=== PATIENT | male | born 1960 | race Caucasian/White ===

== ENCOUNTER 2018-09-30 20:34 | Emergency (ER) | payer BC ==
[2018-09-30 20:38] VITALS: BP 132/74; PULSE 89; TEMP 98.2; BMI 29.2
--- NOTE | 2018-09-30 21:31 | PDOC ---
History of Present Illness - General History Source: Patient Exam Limitations: No Limitations <CleopatraJose L - Last Filed: 09/30/18 23:20> <Latesha Yung - Last Filed: 10/01/18 05:24> - General Chief Complaint: Chest Pain Stated Complaint: CHEST PAIN Time Seen by Provider: 09/30/18 20:39 - History of Present Illness Initial Comments: 09/30/18 23:21 Patient is a 58 year old male with a significant past medical history of Anxiety , HTN, who presents to the ED with complaints of chest pain that began this morning. Patient reports waking up this morning with chest pain as well as left arm numbness. He reports chest pain is a pressured tightness pain that he states increases with exertion and does not radiate. Patient reports experiencing associated symptoms of head pain, neck pain, lightheadedness, dizziness and fatigue that he states began x5 days ago. Denies chest pain, Sob. Denies nausea, vomiting. Denies fevers, chills. Denies contact with sick individuals, out of state travelling. Denies any other symptoms. Allergies: Penicillins. Social history: Lives with . Former smoker (last 8 months ago). No alcohol. No illicit drugs. Surgical history: None PMD: Dr. Tatiana Nails ([facility]helan[facility]) Past History <CleopatraJose L - Last Filed: 09/30/18 23:20> - Past Medical History Cardiac Disorders: Yes (SVT) COPD: No Disorders: Yes (UTI'S) Kidney Stones: Yes - Surgical History Abdominal Surgery: No Appendectomy: No Cardiac Surgery: No Cholecystectomy: No Lung Surgery: No Neurologic Surgery: No Orthopedic Surgery: No - Immunization History Immunization Up to Date: Yes - Suicide/Smoking/Psychosocial Hx Smoking Status: Yes Smoking History: Former smoker Years of Tobacco Use: 2 Have you smoked in the past 12 months: No Number of Cigarettes Smoked Daily: 2 Information on smoking cessation initiated: Yes Hx Alcohol Use: (occasional) Drug/Substance Use Hx: No Substance Use Type: None Hx Substance Use Treatment: No <Latesha Yung - Last Filed: 10/01/18 05:24> - Past Medical History Allergies/Adverse Reactions: Allergies Allergy/AdvReac Type Severity Reaction Status Date / Time Penicillins Allergy Intermediate Verified 09/30/18 20:35 Home Medications: Ambulatory Orders NK [No Known Home Medication] 09/30/18 Review of Systems - Review of Systems Able to Perform ROS?: Yes <Jose L Whelan - Last Filed: 09/30/18 23:20> <Latesha Yung - Last Filed: 10/01/18 05:24> - Review of Systems Comments:: 09/30/18 23:21 GENERAL/CONSTITUTIONAL: No fever or chills. No weakness. HEAD, EYES, EARS, NOSE AND THROAT: No change in vision. No ear pain or discharge. No sore throat. CARDIOVASCULAR: +Chest pain No shortness of breath. RESPIRATORY: No cough, wheezing, or hemoptysis. GASTROINTESTINAL: No nausea, vomiting, diarrhea or constipation. GENITOURINARY: No dysuria, frequency, or change in urination. MUSCULOSKELETAL: +Left arm numbness. No joint or muscle swelling or pain. No neck or back pain. SKIN: No rash NEUROLOGIC: No headache, vertigo, loss of consciousness, or change in strength/ sensation. ENDOCRINE: No increased thirst. No abnormal weight change. HEMATOLOGIC/LYMPHATIC: No anemia, easy bleeding, or history of blood clots. ALLERGIC/IMMUNOLOGIC: No hives or skin allergy. (Jose L Whelan) *Physical Exam <Jose L Whelan - Last Filed: 09/30/18 23:20> <Latesha Yung - Last Filed: 10/01/18 05:24> - Vital Signs Last Vital Signs Temp Pulse Resp BP Pulse Ox 98.2 F 89 18 132/74 100 09/30/18 20:34 09/30/18 20:34 09/30/18 20:34 09/30/18 20:34 09/30/18 20:34 - Physical Exam Comments: 09/30/18 23:21 GENERAL: Awake, alert, and fully oriented, in no acute distress HEAD: No signs of trauma EYES: PERRLA, EOMI, sclera anicteric, conjunctiva clear ENT: Auricles normal inspection, hearing grossly normal, nares patent, oropharynx clear without exudates. Moist mucosa NECK: Normal ROM, supple, no lymphadenopathy, JVD, or masses LUNGS: Breath sounds equal, clear to auscultation bilaterally. No wheezes, and no crackles HEART: Regular rate and rhythm, normal S1 and S2, no murmurs, rubs or gallops ABDOMEN: Soft, nontender, normoactive bowel sounds. No guarding, no rebound. No masses EXTREMITIES: Normal range of motion, no edema. No clubbing or cyanosis. No cords, erythema, or tenderness NEUROLOGICAL: Cranial nerves II through XII grossly intact. Normal speech, normal gait SKIN: Warm, Dry, normal turgor, no rashes or lesions noted. (Jose L Whelan) - Procedure Monitoring Vital Signs: Procedure Monitoring Vital Signs Temperature 98.2 F 09/30/18 20:34 Pulse Rate 89 09/30/18 20:34 Respiratory Rate 18 09/30/18 20:34 Blood Pressure 132/74 09/30/18 20:34 O2 Sat by Pulse Oximetry (%) 100 09/30/18 20:34 ED Treatment Course - LABORATORY CBC & Chemistry Diagram: 09/30/18 21:30 09/30/18 21:00 <Jose L Whelan - Last Filed: 09/30/18 23:20> - LABORATORY CBC & Chemistry Diagram: 09/30/18 21:30 09/30/18 21:00 <Latesha Yung - Last Filed: 10/01/18 05:24> - ADDITIONAL ORDERS Additional order review: Laboratory Results 10/01/18 09/30/18 09/30/18 01:00 21:30 21:00 PT with INR 12.8 INR 1.15 Sodium Potassium Chloride Carbon Dioxide Anion Gap BUN Creatinine Creat Clearance w eGFR Random Glucose Calcium Total Bilirubin AST ALT Alkaline Phosphatase Creatine Kinase Troponin I < 0.02 < 0.03 Total Protein Albumin 09/30/18 21:00 PT with INR INR Sodium 140 Potassium 4.0 Chloride 106 Carbon Dioxide 27 Anion Gap 7 L BUN 24 H Creatinine 1.1 Creat Clearance w eGFR > 60 Random Glucose 103 Calcium 8.7 Total Bilirubin 0.9 AST 19 D ALT 16 D Alkaline Phosphatase 51 Creatine Kinase 73 Troponin I Total Protein 6.7 Albumin 4.0 09/30/18 21:30 RBC 5.02 MCV 83.9 MCHC 33.1 RDW 13.6 MPV 8.8 Neutrophils % 51.7 Lymphocytes % 36.3 Monocytes % 9.4 Eosinophils % 1.6 Basophils % 1.0 - RADIOLOGY Radiology Studies Ordered: Category Date Time Status CHEST X-RAY PORTABLE* [RAD] Stat Radiology 09/30/18 23:06 Taken - Medications Given in the ED: ED Medications Discontinued Medications Generic Name Dose Route Start Last Admin Trade Name Zee PRN Reason Stop Dose Admin Ketorolac Tromethamine 30 mg 09/30/18 23:05 09/30/18 23:23 Toradol Injection - IVPUSH 09/30/18 23:06 30 mg ONCE ONE Administration Medical Decision Making <Jose L Whelan - Last Filed: 09/30/18 23:20> <Latesha Yung - Last Filed: 10/01/18 05:24> - Medical Decision Making Documentation has been prepared under my direction and personally reviewed by me in its entirety. I attest that this documented accurately reflects all work, treatment, procedures and medical decision making performed by me. As noted above, this 58-year-old man presents with 1 day history of left-sided chest pain/a few hour history of left forearm/left hand numbness (palmar aspect ) that resolved spontaneously. Patient states that he has some increase in pain with exertion; no clear pleuritic component to the pain. Physical exam is notable for tenderness of the left anterior chest wall to palpation; otherwise, physical exam is normal. His risk factors for coronary artery disease is past history of smoking only Laboratory evaluation is essentially normal, including troponin which is not elevated Second troponin level is drawn 4 hours after first: No elevation seen Clinical presentation is most consistent with chest wall etiology pain such as costochondritis/chest wall strain. Patient was given 30 mg Toradol IV. (Latesha Yung) *DC/Admit/Observation/Transfer <Jose L Whelan - Last Filed: 09/30/18 23:20> <Latesha Yung - Last Filed: 10/01/18 05:24> Diagnosis at time of Disposition: Atypical chest pain - Discharge Dispostion Disposition: HOME Condition at time of disposition: Stable - Referrals Referrals: Tatiana Nails MD [Primary Care Provider] - Call tomorrow - Patient Instructions Printed Discharge Instructions: DI for Atypical Chest Pain Additional Instructions: Rest; avoid strenuous activity involving upper body for the next 5 days Ibuprofen/naproxen/acetaminophen as needed for pain Call Dr. Nails tomorrow to arrange follow-up within the next 48 hours Return to ER immediately if you have worsening pain/shortness of breath - Post Discharge Activity - Attestations Scribe Attestion: 09/30/18 23:21 Documentation prepared by Jose L Whelan, acting as biomedical analytical scientist for Latesha Yung MD. (Cleopatra,Jose L)
[2018-09-30 21:51] LABS: HEMOGLOBIN 13.9 GM/dl (11.7-16.9)
[2018-09-30 21:55] LABS: EOS % 1.6 % (0-4.5); HEMATOCRIT 42.1 % (35.4-49); INR 1.15 (0.82-1.09); LYMPH % 36.3 % (8-40); MCH 27.8 pg (25.7-33.7); MCHC 33.1 g/dl (32.0-35.9); MEAN CELL VOLUME 83.9 fl (80-96); MEAN PLT VOLUME 8.8 fl (7.5-11.1); MONO % 9.4 % (3.8-10.2); NEUT % 51.7 % (42.8-82.8); PLATELET COUNT 212 K/MM3 (134-434); PROTHROMBIN TIME (PATIENT) 12.8 SEC (10.2-13.0); RBC 5.02 M/mm3 (4.00-5.60); RDW 13.6 % (11.9-15.9); WHITE BLOOD COUNT 4.6 K/mm3 (4.0-10.8)
[2018-09-30 22:02] LABS: ALK PHOS 51 U/L (32-92); ANION GAP 7 MMOL/L (8-16); BILIRUBIN,TOTAL 0.9 mg/dl (0.2-1.0); BLOOD UREA NITROGEN 24 mg/dl (7-18); CALCIUM 8.7 mg/dl (8.4-10.2); CHLORIDE 106 mmol/L (98-107); CO2 27 mmol/L (22-28); CREATININE 1.1 mg/dl (0.6-1.3); GLUCOSE,RANDOM 103 mg/dl (74-106); SGOT/AST 19 U/L (10-42); SGPT/ALT 16 U/L (10-40); SODIUM 140 mmol/L (136-145); TOT PROT 6.7 g/dl (6.4-8.3)
[2018-09-30] MEDS ORDERED: KETOROLAC TROMETHAMINE 30 MG/1 ML VIAL IVPUSH ONE (23:05)
[2018-09-30] MEDS ORDERED: KETOROLAC TROMETHAMINE 30 MG/1 ML VIAL ONE (23:22)
--- NOTE | 2018-10-06 18:18 | EKG ---
Test Reason : Blood Pressure : / mmHG Vent. Rate : 074 BPM Atrial Rate : 074 BPM P-R Int : 144 ms QRS Dur : 092 ms QT Int : 396 ms P-R-T Axes : 071 074 059 degrees QTc Int : 439 ms NORMAL SINUS RHYTHM NORMAL ECG NO PREVIOUS ECGS AVAILABLE Confirmed by MD LEONCIO, CIELO ([id number]) on 10/06/2018 6:18:27 PM Referred By: MD CORTES Confirmed By:CIELO FANG MD
== END 2018-10-01 02:23 | disposition home or self-care (01) ==
LOC: FER 20:34
PROC: 3E0333Z Introduction of Anti-inflammatory into Peripheral Vein, Percutaneous Approach (ICD-10-PCS; principal; 2018-09-30)
DX: R07.89 Other chest pain (principal); I10 Essential (primary) hypertension; F41.9 Anxiety disorder, unspecified; Z88.0 Allergy status to penicillin; Z87.891 Personal history of nicotine dependence
CPT/HCPCS: 36415; 71045-TC-FY; 80053; 82550; 84484; 85025; 85610; 93005; 99284-25

== ENCOUNTER 2020-06-12 07:31 | Day surgery (SDC) | payer BC ==
--- OUTSIDE RECORDS SUMMARY | 2020-06-07 07:29 | XMS ---
:1960 Author Organization [facility] Support Name Relationship Address Phone GUILLORY DESIGN Unavailable [address] [place] [address] FAISAL VILLARREAL [address] [facility] [phone] [place] [address] FAISAL LOZA [address] [facility] [phone] [place] [address] Re-disclosure Warning The records that you are about to access may contain information from federally- assisted alcohol or drug abuse programs. If such information is present, then the following federally mandated warning applies: This information has been disclosed to you from records protected by federal confidentiality rules (42 CFR part 2). The federal rules prohibit you from making any further disclosure of this information unless further disclosure is expressly permitted by the written consent of the person to whom it pertains or as otherwise permitted by 42 CFR part 2. A general authorization for the release of medical or other information is NOT sufficient for this purpose. The Federal rules restrict any use of the information to criminally investigate or prosecute any alcohol or drug abuse patient.The records that you are about to access may contain highly sensitive health information, the redisclosure of which is protected by Article 27-F of the [facility] Public Health law. If you continue you may haveaccess to information: Regarding HIV / AIDS; Provided by facilities licensed or operated by the [facility] Office of Mental Health; or Provided by the [facility] Office for People With Developmental Disabilities. If such information is present, then the following [facility] mandated warning applies: This information has been disclosed to you from confidential records which are protected by state law. State law prohibits you from making any further disclosure of this information without the specific written consent of the person to whom it pertains, or as otherwise permitted by law. Any unauthorized further disclosure in violation of state law may result in a fine or skilled nursing sentence or both. A general authorization for the release of medical or other information is NOT sufficient authorization for further disclosure. Insurance Providers Payer name Policy type / Policy ID Covered Covered constitution party's Policy Plan Coverage type constitution party ID relationship to [place] Information ap[employer] [place] OUT OF [id number] SP [id number] [id number] BC OUT OF [id number] SP [id number] [address] [id number] [place] OUT OF [id number] SP [id number] [id number]
[2020-06-08 11:38] VITALS: BMI 27.8
--- OUTSIDE RECORDS SUMMARY | 2020-06-12 07:34 | XMS ---
:1960 Author Organization [facility] Support Name Relationship Address Phone GUILLORY DESIGN Unavailable [address] [place] [address] FAISAL VILLARREAL [address] [facility] [phone] [place] [address] FAISAL LOZA [address] [facility] [phone] [place] [address] Re-disclosure Warning The records that you are [...] is protected by Article 27-F of the [facility] Public Health law. If you continue you may haveaccess to information: Regarding HIV / AIDS; Provided by facilities licensed or operated by the [facility] Office of Mental Health; or Provided by the [facility] Office for People With Developmental Disabilities. If such information is present, then the following [facility] mandated warning applies: This information has [...] law may result in a fine or shelter sentence or both. A general authorization for the release of medical or other information is NOT sufficient authorization for further disclosure. Insurance Providers Payer name Policy type / Policy ID Covered Covered green party's Policy Plan Coverage type green party ID relationship to [place] Information [employer] [place] OUT OF [id number] SP [id number] [address] [address] BC OUT OF [id number] SP [id number] [address] [address] [place] OUT OF [id number] SP [id number] [address] [address]
[2020-06-12] MEDS ORDERED: PROPOFOL 20 ML ONE ×3 (07:57)
[2020-06-12] MEDS ORDERED: LIDOCAINE HCL/PF 2% SDV 5ML VIAL ONE (07:57)
[2020-06-12 10:26] VITALS: BP 102/61; PULSE 64; TEMP 98
--- NOTE | 2020-06-14 16:49 | PATH ---
Surgical Pathology Report Patient Name: ANDREW LOZA [facility]. Rec. #: [id number] /Age/Gender: 1960 (Age: 59) / M Account: [id number] Location: [facility] Taken: 06/12/2020 Received: 06/12/2020 Reported: 06/14/2020 Physicians: Christofer Padgett M.D. Specimen(s) Received RECTAL POLYP Clinical History Screening Postoperative diagnosis: Rectal polyp Final Diagnosis RECTAL POLYP, BIOPSY: SESSILE SERRATED POLYP. Electronically Signed Trisha Bañuelos M.D. Gross Description Received in formalin, labeled "rectal polyp" is a pittman, irregular portion of soft tissue measuring 0.2 cm. in greatest dimension. The specimen is submitted in toto in one cassette. 06/13/2020 [facility]06/13/2020
== END 2020-06-12 10:30 | disposition home or self-care (01) ==
LOC: FASU-ENDO 07:31
PROVIDERS: ATTEND Internal Medicine Gastroenterology
PROC: 0DBP8ZX Excision of Rectum, Via Natural or Artificial Opening Endoscopic, Diagnostic (ICD-10-PCS; principal; 2020-06-12 09:31)
DX: Z12.11 Encounter for screening for malignant neoplasm of colon (principal); K62.1 Rectal polyp
CPT/HCPCS: 88305-TC

== ENCOUNTER 2024-01-14 10:03 | Day surgery (SDC) | payer BC ==
[2024-01-07 15:31] VITALS: BMI 29.1
[2024-01-14] MEDS: CIPROFLOXACIN 0.3% EYE DROPS 5 ML BOTTLE ONE (10:55)
[2024-01-14] MEDS: TROPICAMIDE 1% OPHTH SOLN 15 ML BOTTLE ONE (10:55)
[2024-01-14] MEDS: PHENYLEPHRINE 2.5% OPTHALMIC DROP 2ML BOTTLE ONE (10:55)
[2024-01-14] MEDS: CYCLOPENTOLATE 2% OPHTH SOLN 2 ML BOTTLE ONE (10:55)
[2024-01-14 11:01] VITALS: RESP 16; TEMP 97.3
[2024-01-14] MEDS ORDERED: TETRACAINE 0.5% OPHTH SOLN 2 ML BOTTLE ONE (11:09)
[2024-01-14] MEDS ORDERED: LIDOCAINE 1% P/F 10 MG/ML VIAL ONE (11:09)
[2024-01-14] MEDS ORDERED: BSS (NA/CA/MG/K) BALANCED SALT SOLUTION OPHTH SOLN 15 ML BOTTLE ONE (11:09)
[2024-01-14] MEDS ORDERED: CARBACHOL 0.01% INTRA-OCULAR 1.5 ML VIAL ONE (11:09)
[2024-01-14] MEDS ORDERED: NEO/POLYMYX B SULF/DEXAMETH OPHTHALMIC 5ML BOTTLE ONE (11:09)
[2024-01-14] MEDS ORDERED: MIDAZOLAM HCL 2 MG/2 ML SINGLE DOSE VIAL ONE (12:35)
[2024-01-14 14:17] VITALS: BP 120/67; PULSE 66
== END 2024-01-14 14:15 | disposition home or self-care (01) ==
LOC: FASU 10:03
PROVIDERS: ATTEND Ophthalmology
PROC: 08RK3JZ Replacement of Left Lens with Synthetic Substitute, Percutaneous Approach (ICD-10-PCS; principal; 2024-01-14 13:12)
DX: H26.8 Other specified cataract (principal)
CPT/HCPCS: 66984; V2632

== ENCOUNTER 2024-03-03 07:52 | Day surgery (SDC) | payer BC ==
[2024-02-23 16:36] VITALS: BMI 29.0
[2024-03-03] MEDS: CIPROFLOXACIN 0.3% EYE DROPS 5 ML BOTTLE ONE (08:00)
[2024-03-03] MEDS: PHENYLEPHRINE 2.5% OPTHALMIC DROP 2ML BOTTLE ONE (08:00)
[2024-03-03] MEDS: CYCLOPENTOLATE 2% OPHTH SOLN 2 ML BOTTLE ONE (08:00)
[2024-03-03] MEDS: TROPICAMIDE 1% OPHTH SOLN 15 ML BOTTLE ONE (08:00)
[2024-03-03] MEDS ORDERED: BSS (NA/CA/MG/K) BALANCED SALT SOLUTION OPHTH SOLN 15 ML BOTTLE ONE (08:19)
[2024-03-03] MEDS ORDERED: LIDOCAINE 1% P/F 10 MG/ML VIAL ONE (08:19)
[2024-03-03] MEDS ORDERED: TETRACAINE 0.5% OPHTH SOLN 2 ML BOTTLE ONE (08:19)
[2024-03-03] MEDS ORDERED: NEO/POLYMYX B SULF/DEXAMETH OPHTHALMIC 5ML BOTTLE ONE (08:19)
[2024-03-03] MEDS ORDERED: CARBACHOL 0.01% INTRA-OCULAR 1.5 ML VIAL ONE (08:19)
[2024-03-03 08:26] VITALS: RESP 18; TEMP 97.5
[2024-03-03] MEDS ORDERED: MIDAZOLAM HCL 2 MG/2 ML SINGLE DOSE VIAL ONE (10:16)
[2024-03-03 12:22] VITALS: BP 103/71; PULSE 61
== END 2024-03-03 11:20 | disposition home or self-care (01) ==
LOC: FASU 07:52
PROVIDERS: ATTEND Ophthalmology
PROC: 08RJ3JZ Replacement of Right Lens with Synthetic Substitute, Percutaneous Approach (ICD-10-PCS; principal; 2024-03-03 10:20)
DX: H26.8 Other specified cataract (principal)
CPT/HCPCS: 66984; V2632